=== PATIENT | female | born 1970 | race Caucasian/White ===

== ENCOUNTER → 2019-04-16 | Outpatient (CLI) | payer OTHER ==
--- NOTE | 2019-04-16 17:10 | RADIOLOGY REPORT (SQ) ---
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 TECHNIQUE: Dynamic and static soto-scale images acquired of the thyroid gland. Selected additional c olor/power Doppler images recorded. All images stored to PACS. LIMITATIONS: None. FINDINGS: RIGHT LOBE: Normal in size measuring 4.2 x 1.4 x 1.7 cm. Heterogeneous echotexture. Ther e are multiple nodules. The 2 largest nodules were measured bilaterally. There is a solid hypoechoi c interpolar nodule with well-defined smooth margins and no calcification measuring 0.7 x 0.7 x 0.5 c m (TI rads 4). There is hypoechoic nodule with lobulated border and without calcifications in the lo wer pole measuring 0.3 x 0.2 x 0.3 cm (TI rads 4). LEFT LOBE: Normal in size measuring 4.8 x 1.0 x 1.6 cm . There is a heterogeneous echotexture with multiple nodules. The 2 largest nodules were measured. There is a 0.5 x 0.5 x 0.3 cm very hypoechoi c nodule within the interpolar region with a lobulated border and no calcifications (TI rads 5). The re is a inferior pole solid hypoechoic nodule with smooth border and with punctate echogenic foci griffin suring 2.6 x 1.9 x 1.2 cm (TI rads 5). ISTHMUS: Normal size. OTHER: No other significant finding. IMPRESSION: 1. 2.6 x 1.9 x 1.2 cm TI rads 5 left lower pole thyroid nodule which meets criteria for biopsy. 2. Multiple additional subcentimeter nodules as above which do not meet criteria for biopsy at this time. See follow-up recommendations as below. COMMENT: The [employer] ([employer]) Thyroid Imaging Reporting And Data System (TI-RADS ) is an ultrasound feature based summed scoring system of risk categorization and management recommen dations for thyroid nodules. TI-RADS assessment categories are as follows: 0 - Incomplete exam: Additional imaging or comparison to prior examinations recommended. 1. - Benign: Fine-needle aspiration or follow-up not routinely recommended in the absence of clinical change. 2. - Not suspicious: Fine-needle aspiration or follow-up not routinely recommended in the absence of clinical change. 3. - Mildly suspicious: Fine-needle aspiration recommended if greater than or equal to 2.5 cm in size . Ultrasound follow-up recommended if greater than or equal to 1.5 cm in size. 4. - Moderately suspicious: Fine-needle aspiration recommended if greater than or equal to 1.5 cm in size. Ultrasound follow-up recommended if greater than or equal to 1.0 cm in size. 5. - Highly suspicious: Fine-needle aspiration recommended if greater than or equal to 1.0 cm in size . Ultrasound follow-up recommended if greater than or equal to 0.5 cm in size. TECHNICAL DOCUMENTATION: JOB ID: [id number] [email or web address] All Rights Reserved Reading location - IP/workstation name: [email or web address]
== END ==
LOC: RAD 15:18
PROVIDERS: ATTEND Nurse Practitioner Family
DX: E01.0 Iodine-deficiency related diffuse (endemic) goiter (principal)
CPT/HCPCS: 76536